=== PATIENT | female | born 1960 | race Two or more races ===

== ENCOUNTER 2020-03-07 14:46 | Outpatient (CLI) | payer OTHER | END 2020-03-07 23:59 | disposition home or self-care (01) | LOC: MSC 14:46 | PROVIDERS: ATTEND Internal Medicine | DX: M79.2 Neuralgia and neuritis, unspecified (principal); G47.00 Insomnia, unspecified; B36.0 Pityriasis versicolor; R53.83 Other fatigue; F32.9 Major depressive disorder, single episode, unspecified ==

== ENCOUNTER 2020-03-25 12:54 | Outpatient (CLI) | payer OTHER | END 2020-03-25 23:59 | disposition home or self-care (01) | LOC: MSC 12:54 | PROVIDERS: ATTEND Internal Medicine | DX: R14.0 Abdominal distension (gaseous) (principal); M79.2 Neuralgia and neuritis, unspecified; G47.00 Insomnia, unspecified; B36.0 Pityriasis versicolor; R53.83 Other fatigue; F32.9 Major depressive disorder, single episode, unspecified; D64.9 Anemia, unspecified ==

== ENCOUNTER 2020-06-22 09:16 | Outpatient (CLI) | payer BC, OTHER | END 2020-06-22 23:59 | disposition home or self-care (01) | LOC: MSC 09:16 | PROVIDERS: ATTEND Internal Medicine | DX: G47.00 Insomnia, unspecified (principal); R53.83 Other fatigue; R14.0 Abdominal distension (gaseous); M79.2 Neuralgia and neuritis, unspecified; B36.0 Pityriasis versicolor; F32.9 Major depressive disorder, single episode, unspecified; D64.9 Anemia, unspecified; Z79.899 Other long term (current) drug therapy ==